=== PATIENT | female | born 1970 | race Caucasian/White ===

== ENCOUNTER 2021-10-31 14:34 | Observation (INO) ==
[2021-10-31] MEDS ORDERED: ONDANSETRON INJ 2 MG/ML 2 ML VIAL IV STA (14:53)
[2021-10-31 15:34] LABS: POC Urine Bilirubin Negative (Negative); POC Urine Blood 250 (Negative); POC Urine Glucose Normal (Normal); POC Urine Leukocytes Negative (Negative); POC Urine Nitrite Negative (Negative); POC Urine Protein Negative (Negative); POC Urine Urobilinogen Normal (Normal); POC Urine pH 7 (4.5-7.5)
[2021-10-31 15:59] LABS: Appearance Urine Clear (Clear); Bacteria Urine Automated Negative (Negative); Bilirubin Urine Negative (Negative); Blood Urine 3+ (Negative); Color Urine Yellow; Epithelial Cell Urine Auto 20-30 /lpf (0-5); Glucose Urine UA Negative (Negative); Ketones Urine 1+ (Negative); Leukocyte Esterase Urine Negative (Negative); Nitrite Urine Negative (Negative); Protein Urine Negative (Negative); RBC Urine Automated >30 /hpf (0-4); Specific Gravity Urine 1.017 (1.000-1.030); Urobilinogen Urine Negative (Negative); pH Urine 5.5 (4.5-7.5)
[2021-10-31 16:03] LABS: Hematocrit (blood only) 39.4 % (34.1-44.9); Hemoglobin 12.8 g/dl (12.0-16.0); Mean Corpuscular Hemoglobin 27.5 pg (25.0-34.0); Mean Corpuscular Hgb Conc 32.5 g/dL (32.0-36.0); Mean Corpuscular Volume 84.7 fL (80.0-100.0); Mean Platelet Volume 10.2 fL (9.4-12.3); Platelet Count 315 K/uL (130-400); RDW Coefficient of Variation 13.4 % (11.5-14.5); RDW Standard Deviation 41.4 fL (36.4-46.3); Red Blood Count 4.65 M/uL (3.93-5.22)
[2021-10-31 16:22] LABS: Albumin Globulin Ratio 1.4 (0.9-2); Albumin Level 4.6 gm/dl (3.4-5.0); BUN Creatinine Ratio 12.4 (10-20); Basophils # (auto) 0.07 K/uL (0-0.2); Basophils % (auto) 0.4 %; Bilirubin,Total 1.1 mg/dl (0.2-1.0); Calcium 9.4 mg/dl (8.5-10.1); Creatinine Clr Calc Pharmacy 68.8 ml/min; Eosinophils # (auto) 0.84 K/uL (0-0.50); Eosinophils % (auto) 4.9 %; Est GFR (African American) 88.2 ml/min; Est GFR (Non-African American) 76.1 ml/min; Globulin 3.2 gm/dl (2.5-4.0); Immature Granulocytes # (auto) 0.08 K/uL (0.00-0.02); Immature Granulocytes % (auto) 0.5 %; Lymphocytes # (auto) 2.04 K/uL (1.2-3.4); Lymphocytes % (auto) 11.9 %; Monocytes % (auto) 9.3 %; Neutrophils # (auto) 12.57 K/uL (1.4-6.5); Potassium 3.1 mmol/L (3.5-5.1); Total Protein 7.8 gm/dl (6.0-8.3)
[2021-10-31] MEDS ORDERED: KETOROLAC TROMETHAMINE 15 MG/ML VIAL IV STA (16:25)
[2021-10-31] MEDS ORDERED: ACETAMINOPHEN 1,000 MG/100 ML VIAL IV STA (16:25)
[2021-10-31] MEDS ORDERED: SODIUM CHLORIDE 0.9% 1000ML 2,000 ML IV ONE (16:25)
[2021-10-31] MEDS ORDERED: OPTIRAY 300 100mL IV ONE (16:54)
--- NOTE | 2021-10-31 17:24 | CT Scan Report ---
ABDOMEN AND PELVIS CT WITH IV CONTRAST CT DOSE: 264.16 mGy.cm HISTORY: right flank pain, n/v TECHNIQUE: Multiaxial CT images of the abdomen and pelvis were performed following the use of intrave nous contrast. A dose lowering technique was utilized adhering to the principles of ALARA. COMPARISON STUDY: None. FINDINGS: The lung bases are clear. No pneumoperitoneum. No pneumatosis. Sclerosis within the left me dial pubic bone which may be chronic. No fractures within the visualized osseous structures. The live r, gallbladder, pancreas, spleen, and adrenal glands are unremarkable. The main portal vein is patent . No retroperitoneal lymphadenopathy. Normal caliber abdominal aorta. No pelvic free fluid. The bladd er is decompressed but appears unremarkable. The uterus and ovaries are within normal limits. A few s mall bilateral renal hypodense lesions. Dominant right upper pole hypodense lesion measures 11 mm. Th judi favor cysts. No left-sided hydronephrosis. There is right perinephric edema/fluid and mild right hydroureteronephrosis secondary to an obstructing 4 mm stone within the distal right ureter on image 327. This is immediately proximal to the right ureterovesical junction. There is additional punctate nonobstructing stone within the lower pole of the right kidney. No bowel wall thickening or obstructi on. Normal appendix. IMPRESSION: 1. A 4 mm obstructing stone within the distal right ureter resulting in mild right hydroureteronephro sis. 2. Right perinephric edema/fluid could be due to the obstruction or represent a forniceal rupture . 3. Right-sided nephrolithiasis. 4. Normal appendix. ACT 112: Negative or not required by law. Electronically signed by: Semaj Ellis M.D. 10/31/2021 5:22 PM
[2021-10-31] MEDS ORDERED: TAMSULOSIN HCL 0.4 MG CAP PO ONE (17:32)
[2021-10-31] MEDS ORDERED: METOCLOPRAMIDE HCL INJ 5 MG/ML 2 ML VIAL IV ONE (18:17)
[2021-10-31] MEDS ORDERED: MoRPHine SULFATE 4 MG/ML 1 ML CARP\\VIAL IV STA (18:17)
--- NOTE | 2021-10-31 22:04 | History & Physical Report ---
Date of Service October 31, 2021 Assessment & Plan (1) Right distal ureteral calculus: Plan: Distal right ureteral calculus/mild right hydronephrosis/questionable forniceal rupture- N.p.o. after midnight Follow urine culture and sensitivity Ceftriaxone 1 g IV daily Acetaminophen 1 g IV every 8 hours as needed mild pain or fever Morphine sulfate 4 mg IV every 3 hours as needed for severe pain Zofran 4 mg IV every 6 hours as needed Famotidine 20 mg IV every 12 hours NSS + KCl 20 mEq at 80 mils per hour Consult urology (2) Hydronephrosis of right kidney: Plan: See above (3) Neutrophilic leukocytosis: Plan: Follow urine culture and sensitivity (4) Hypokalemia: Plan: Potassium 3.1 on admission IV fluids as noted above and recheck labs in a.m. (5) Hyponatremia: Plan: Sodium 133 on admission IV fluids above and recheck labs in a.m. History of Present Illness Chief Complaint: The patient reports to the emergency department with complaint of worsening right flank and right lower quadrant abdominal pain that began early in the day today, when she packed up her daughter and started to travel from [facility] and brought her to [facility] for first day of freshman year of college Primary Care Provider: NO PCP The patient is a 51-year-old female with a past medical history including 2 previous kidney stones, with the first when she was with her daughter over 17 years ago. At that time she had hematuria, which she does not have this time. She reports that her liquid intake may be decreased over the past few days with packing. He has had some nausea, no vomiting. She reports no sick exposures. Allergies Allergy/AdvReac Type Severity Reaction Status Date / Time Penicillins Allergy Unknown childhood Verified 10/31/21 16:37 allergy..unknown reaction Home Medications Medication Instructions Recorded Confirmed Type fexofenadine 180 mg tablet 180 mg PO DAILY 10/31/21 10/31/21 History ibuprofen 200 mg tablet (Advil) 400 - 800 mg PO Q6H PRN Pain 10/31/21 10/31/21 History Past Med/Surg History Social History Smoking Status: Never smoker Preferred Language: Malay Feels Safe at Home: Yes Review of Systems Review of Systems: The patient denies chest pain, palpitations, shortness of breath, dyspnea on exertion, cough, lower extremity swelling, sore throat, fevers, chills, sweats, vomiting, diarrhea , constipation, blood in urine or stool, lightheadedness, dizziness, headache, memory loss, loss of consciousness, rash, abnormal bruising or bleeding, imbalance, focal or generalized weakness, numbness or tingling in arms or legs, generalized arthralgias or myalgias, neck pain, or night sweats. The review of systems is otherwise negative other than for that already noted above, and at least 10 systems have been reviewed. Physical Exam Physical Exam: The patient is awake, alert and oriented 3, well developed and well nourished, normocephalic and atraumatic, lying in bed and in no acute distress after pain medications HEENT--PERRL, EOMI, mucous membranes and oropharynx normal. Neck--supple. No JVD. No bruits. Thyroid normal, trachea midline, no adenopathy. Heart--normal S1 and S2. No murmurs, rubs or gallops. Lungs--clear bilaterally, no respiratory distress, no accessory muscle use. Abdomen--normal bowel sounds and soft. Mild right flank tenderness. Nondistended, no hernias or masses, no organomegaly. Extremities--no cyanosis or clubbing. No edema. Dermatologic--normal skin turgor, normal color, no abnormal lymph nodes, no rash. Neurologic--cranial nerves II through XII grossly intact. Rheumatologic--normal range of motion. Psychiatric--normal affect. Results & Data Results & Data ([facility]) Vital Signs (Past 12 Hours) Vital Signs Temp Pulse Pulse Resp BP BP Pulse Ox 10/31/21 20:34 65 20 125/77 95 10/31/21 16:36 71 20 139/78 95 10/31/21 14:48 36.9 C 75 20 150/85 H 99 O2 Del Method 10/31/21 20:34 Room Air 10/31/21 16:36 Room Air 10/31/21 14:48 Room Air Laboratory Results Laboratory Results WBC 17.20 K/ul (4.8-10.8) H 10/31/21 15:39 RBC 4.65 M/uL (3.93-5.22) 10/31/21 15:39 Hgb 12.8 g/dl (12.0-16.0) 10/31/21 15:39 Hct 39.4 % (34.1-44.9) 10/31/21 15:39 MCV 84.7 fL (80.0-100.0) 10/31/21 15:39 MCH 27.5 pg (25.0-34.0) 10/31/21 15:39 MCHC 32.5 g/dL (32.0-36.0) 10/31/21 15:39 RDW Std Deviation 41.4 fL (36.4-46.3) 10/31/21 15:39 RDW Coeff of Yamilet 13.4 % (11.5-14.5) 10/31/21 15:39 Plt Count 315 K/uL (130-400) 10/31/21 15:39 MPV 10.2 fL (9.4-12.3) 10/31/21 15:39 Immature Gran % (Auto) 0.5 % 10/31/21 15:39 Neut % (Auto) 73.0 % 10/31/21 15:39 Lymph % (Auto) 11.9 % 10/31/21 15:39 [place] % (Auto) 9.3 % 10/31/21 15:39 Eos % (Auto) 4.9 % 10/31/21 15:39 Baso % (Auto) 0.4 % 10/31/21 15:39 Neut # (Auto) 12.57 K/uL (1.4-6.5) H 10/31/21 15:39 Lymph # (Auto) 2.04 K/uL (1.2-3.4) 10/31/21 15:39 [place] # (Auto) 1.60 K/uL (0.24-0.82) H 10/31/21 15:39 Eos # (Auto) 0.84 K/uL (0-0.50) H 10/31/21 15:39 Baso # (Auto) 0.07 K/uL (0-0.2) 10/31/21 15:39 Immature Gran # (Auto) 0.08 K/uL (0.00-0.02) H 10/31/21 15:39 Sodium 133 mmol/L (136-145) L 10/31/21 15:39 Potassium 3.1 mmol/L (3.5-5.1) L 10/31/21 15:39 Chloride 98 mmol/L (98-107) 10/31/21 15:39 Carbon Dioxide 25 mmol/L (21-32) 10/31/21 15:39 Anion Gap 10 (3-11) 10/31/21 15:39 BUN 11 mg/dl (6-23) 10/31/21 15:39 Creatinine 0.89 mg/dl (0.6-1.2) 10/31/21 15:39 Est Cr Clr Drug Dosing 68.8 ml/min 10/31/21 15:39 Est GFR ( Amer) 88.2 ml/min 10/31/21 15:39 Est GFR (Non-Af Amer) 76.1 ml/min 10/31/21 15:39 BUN/Creatinine Ratio 12.4 (10-20) 10/31/21 15:39 Glucose 98 mg/dl (70-99(Fasting)) 10/31/21 15:39 Calcium 9.4 mg/dl (8.5-10.1) 10/31/21 15:39 Total Bilirubin 1.1 mg/dl (0.2-1.0) H 10/31/21 15:39 AST 21 U/L (13-39) 10/31/21 15:39 ALT 15 U/L (7-52) 10/31/21 15:39 Alkaline Phosphatase 108 U/L (34-104) H 10/31/21 15:39 Total Protein 7.8 gm/dl (6.0-8.3) 10/31/21 15:39 Albumin 4.6 gm/dl (3.4-5.0) 10/31/21 15:39 Globulin 3.2 gm/dl (2.5-4.0) 10/31/21 15:39 Albumin/Globulin Ratio 1.4 (0.9-2) 10/31/21 15:39 Urine Color Yellow 10/31/21 15:20 Urine Appearance Clear (Clear) 10/31/21 15:20 Urine pH 5.5 (4.5-7.5) 10/31/21 15:20 POC Urine pH 7 (4.5-7.5) 10/31/21 15:24 Ur Specific [place] 1.017 (1.000-1.030) 10/31/21 15:20 Urine Protein Negative (Negative) 10/31/21 15:20 POC Urine Protein Negative (Negative) 10/31/21 15:24 Urine Glucose (UA) Negative (Negative) 10/31/21 15:20 POC Ur Glucose (UA) Normal (Normal) 10/31/21 15:24 Urine Ketones 1+ (Negative) H 10/31/21 15:20 POC Urine Ketones 2+ (Moderate) (Negative) H 10/31/21 15:24 Urine Blood 3+ (Negative) H 10/31/21 15:20 POC Urine Blood 250 (Negative) H 10/31/21 15:24 Urine Nitrite Negative (Negative) 10/31/21 15:20 POC Urine Nitrite Negative (Negative) 10/31/21 15:24 Urine Bilirubin Negative (Negative) 10/31/21 15:20 POC Urine Bilirubin Negative (Negative) 10/31/21 15:24 Urine Urobilinogen Negative (Negative) 10/31/21 15:20 POC Urine Urobilinogen Normal (Normal) 10/31/21 15:24 Ur Leukocyte Esterase Negative (Negative) 10/31/21 15:20 POC U Leukocyte Esteras Negative (Negative) 10/31/21 15:24 Urine WBC (Auto) 1-5 /hpf (0-5) 10/31/21 15:20 Urine RBC (Auto) >30 /hpf (0-4) H 10/31/21 15:20 U Hyaline Cast (Auto) 1-5 /lpf (0-5) 10/31/21 15:20 U Epithel Cells (Auto) 20-30 /lpf (0-5) H 10/31/21 15:20 Urine Bacteria (Auto) Negative (Negative) 10/31/21 15:20 POC Ur Test NEG (NEG) 10/31/21 15:24 SARS-CoV-2, RNA, NAAT NEGATIVE (NEGATIVE) 10/31/21 21:20 Impressions Abdomen/Pelvis CT 10/31/21 16:[address] WITH IV CONTRAST CT DOSE: 264.16 mGy.cm HISTORY: right flank pain, n/v TECHNIQUE: Multiaxial CT images of the abdomen and pelvis were performed following the use of intravenous contrast. A dose lowering technique was utilized adhering to the principles of ALARA. COMPARISON STUDY: None. FINDINGS: The lung bases are clear. No pneumoperitoneum. No pneumatosis. Scl erosis within the left medial pubic bone which may be chronic. No fractures within the visualized osseous structures. The liver, gallbladder, pancreas, spleen, and adrenal glands are unremarkable. The main portal vein is patent. No retroperitoneal lymphadenopathy. Normal caliber abdominal aorta. No pelvic free fluid. The bladder is decompressed but appears unremarkable. The uterus and ovaries are within normal limits. A few small bilateral renal hypodense lesions. Dominant right upper pole hypodense lesion measures 11 mm. These favor cysts. No left-sided hydronephrosis. There is right perinephric edema/fluid and mild right hydroureteronephrosis secondary to an obstructing 4 mm stone within the distal right ureter on image 327. This is immediately proximal to the right ureterovesical junction. There is additional punctate nonobstructing stone within the lower pole of the right kidney. No bowel wall thickening or obstruction. Normal appendix. IMPRESSION: 1. A 4 mm obstructing stone within the distal right ureter resulting in mild right hydroureteronephrosis. 2. Right perinephric edema/fluid could be due to the obstruction or represent a forniceal rupture . 3. Right-sided nephrolithiasis. 4. Normal appendix. ACT 112: Negative or not required by law. Electronically signed by: Semaj Ellis M.D. 10/31/2021 5:22 PM Code Status & VTE Plan Code Status Full code VTE Prophylaxis Plan VTE Prophylaxis will be ordered: Yes PG Care Time/CCT Total # of Minutes Spent Total Time Spent with Patient: Total time spent is greater than 50% in coordination of care (as documented) at patient's floor/unit and/or counseling patient: Coding Level of Care Code 83000 Initial Inpt Care Lvl 2 Diagnoses Right distal ureteral calculus N20.1 Hydronephrosis of right kidney N13.30 Neutrophilic leukocytosis D72.9 Hypokalemia E87.6 Hyponatremia E87.1
--- NOTE | 2021-11-01 00:14 | Emergency Department Note ---
Impression & Plan Hydronephrosis of right kidney, Right distal ureteral calculus, Neutrophilic leukocytosis, Hypokalemia, Hyponatremia ED Provider Note NAME: MILADIS ECHEVERRIA AGE: 51 SEX: F ARRIVES VIA: Walk-In INFORMANT: Patient ED PROVIDER(S): Nam Woods MD CHIEF COMPLAINT: right flank pain. PLAN: Disposition: Admit MEDICAL DECISION MAKING: The patient is a pleasant 51-year-old woman with a past medical history of nephrolithiasis who presents to the emergency department with worsening right flank pain that radiates to her right lower abdomen that developed today when they were on their way from [place] to drop their daughter to start school here at [facility]. Patient reports that she began to develop increasing pain with intractable nausea and so presents for evaluation. She denies any burning with urination. She reports it is difficult to assess blood in her urine due to starting her menstrual cycle. She denies any diarrhea, cough, congestion, chest pain or shortness of breath. On arrival, the patient is uncomfortable no acute distress, afebrile stable vital signs. She appears clinically dry. She has mild right flank and right lower abdomen discomfort without discrete tenderness. WBC 17K, nonspecific. H/H and platelets within normal limits. Potassium 3.1, sodium 133 and electrolytes otherwise without significant normality. Chemistry without metabolic acidosis. LFTs without significant abnormality. UA without convincing evidence of infection. COVID-19 RNA, [place] test was negative. CT of the abdomen pelvis was performed and demonstrates obstructing right distal ureteral stone with associated hydroureteral nephrosis and evidence of forniceal rupture. Upon reevaluation patient did report some improvement in symptoms after IV fluid hydration, APAP, Toradol, Zofran. However still nauseated with pain and so was additionally treated with morphine and Reglan however still significantly symptomatic and agrees with plan for admission for pain control. Case was discussed with Dr. Montalvo, [facility] hospitalist, who will evaluate the patient for admission. Triage Nursing notes reviewed and agree them. Prior medical records reviewed Vital Signs: reviewed and remarkable for no significant abnormalities Differential diagnosis: Renal colic, UTI, appendicitis, diverticulitis, mesenteric ischemia, aortic pathology, infections, inflammatory bowel disease, PUD, biliary pathology, as well as other pathologies. ER treatment provided: See below. Diagnostics interpreted by me: Cardiac Monitoring: An order for continuous cardiac monitoring was placed and demonstrated normal sinus rhythm, 65 bpm, no ectopy. Laboratory studies: See below Imaging studies: See below Consultation(s): Case was discussed with Dr. Montalvo, [facility] hospitalist, who will evaluate the patient for admission. HPI: The patient is a pleasant 51-year-old woman with a past medical history of nephrolithiasis who presents to the emergency department with worsening right flank pain that radiates to her right lower abdomen that developed today when they were on their way from [place] to drop their daughter to start school here at [facility]. Patient reports that she began to develop increasing pain with intractable nausea and so presents for evaluation. She denies any burning with urination. She reports it is difficult to assess blood in her urine due to starting her menstrual cycle. She denies any diarrhea, cough, congestion, chest pain or shortness of breath. ROS: See above HPI for pertinent positives & negatives. A total of 10 systems reviewed and were otherwise negative. VITALS:See Below PHYSICAL EXAMINATION: GENERAL: Awake, alert, uncomfortable-appearing, in no distress HENT: Normocephalic, atraumatic. Oropharynx with dry mucous membranes and otherwise unremarkable. EYES: Normal conjunctiva. Sclera non-icteric. NECK: Supple. No nuchal rigidity. FROM. No JVD. RESPIRATORY: Clear to auscultation. CARDIAC: Regular rate, normal rhythm. Extremities warm and well perfused. Pulses equal. ABDOMEN: Soft, non-distended. Mild right flank and right lower abdomen discomfort without discrete tenderness. RECTAL: Deferred. MUSCULOSKELETAL: Chest examination reveals no tenderness. The back is sy mmetrical on inspection without obvious abnormality. There is no CVA tenderness to palpation. No joint edema. LOWER EXTREMITIES: Calves are equal size bilaterally and non-tender. No edema. No discoloration. NEURO: Normal sensorium. No sensory or motor deficits noted. SKIN: No rash or jaundice noted. Nam Woods MD Past Med/Surg History Medical History Nephrolithiasis Family History Other Family history non-contributory Social History Smoking Status: Never smoker Preferred Language: Stateless Feels Safe at Home: Yes Allergies Allergies Allergy/AdvReac Type Severity Reaction Status Date / Time Penicillins Allergy Unknown childhood Verified 10/31/21 16:37 allergy..unknown reaction Home Meds Home Medications Medication Instructions Recorded Confirmed fexofenadine 180 mg tablet 180 mg PO DAILY 10/31/21 10/31/21 ibuprofen 200 mg tablet (Advil) 400 - 800 mg PO Q6H PRN Pain 10/31/21 10/31/21 Results & Data (ED) Vital Signs Vital Signs - 24 hr 10/31/21 14:48 10/31/21 16:36 10/31/21 20:34 Temperature 36.9 C Temperature Source Temporal Artery Scan Pulse Rate 75 Pulse Rate [Right Finger] 71 65 Respiratory Rate 20 20 20 Respiratory Effort / Characteristics Non-Labored Non-Labored Non-Labored Spontaneous Respiratory Depth Normal Normal Normal Respiratory Pattern Regular Blood Pressure 150/85 H Blood Pressure [Right Arm] 139/78 125/77 Blood Pressure Mean 106 Blood Pressure Mean [Right Arm] 98 93 Blood Pressure Position [Right Arm] Lying Pulse Oximetry 99 95 95 Oxygen Delivery Method Room Air Room Air Room Air Sepsis Recent Fever Within 48 Hours No Sepsis New/Unexplained Change in Mental Status N/A Sepsis Action Taken by Nursing No Action Required 10/31/21 22:17 Temperature Temperature Source Pulse Rate Pulse Rate [Right Finger] 57 L Respiratory Rate 18 Respiratory Effort / Characteristics Non-Labored Spontaneous Respiratory Depth Normal Respiratory Pattern Regular Blood Pressure Blood Pressure [Right Arm] 128/83 Blood Pressure Mean Blood Pressure Mean [Right Arm] 98 Blood Pressure Position [Right Arm] Pulse Oximetry 96 Oxygen Delivery Method Room Air Sepsis Recent Fever Within 48 Hours Sepsis New/Unexplained Change in Mental Status Sepsis Action Taken by Nursing Laboratory Data Attestation: I reviewed the patient's lab results. Result diagrams: 10/31/21 15:39 10/31/21 15:39 Lab Results 10/31/21 10/31/21 10/31/21 Range/Units 15:20 15:24 15:24 WBC (4.8-10.8) K/ul RBC (3.93-5.22) M/uL Hgb (12.0-16.0) g/dl Hct (34.1-44.9) % MCV (80.0-100.0) fL MCH (25.0-34.0) pg MCHC (32.0-36.0) g/dL RDW Std Deviation (36.4-46.3) fL RDW Coeff of Yamilet (11.5-14.5) % Plt Count (130-400) K/uL MPV (9.4-12.3) fL Immature Gran % (Auto) % Neut % (Auto) % Lymph % (Auto) % [place] % (Auto) % Eos % (Auto) % Baso % (Auto) % Neut # (Auto) (1.4-6.5) K/uL Lymph # (Auto) (1.2-3.4) K/uL [place] # (Auto) (0.24-0.82) K/uL Eos # (Auto) (0-0.50) K/uL Baso # (Auto) (0-0.2) K/uL Immature Gran # (Auto) (0.00-0.02) K/uL Sodium (136-145) mmol/L Potassium (3.5-5.1) mmol/L Chloride (98-107) mmol/L Carbon Dioxide (21-32) mmol/L Anion Gap (3-11) BUN (6-23) mg/dl Creatinine (0.6-1.2) mg/dl Est Cr Clr Drug Dosing ml/min Est GFR ( Amer) ml/min Est GFR (Non-Af Amer) ml/min BUN/Creatinine Ratio (10-20) Glucose (70-99(Fasting)) mg/dl Calcium (8.5-10.1) mg/dl Total Bilirubin (0.2-1.0) mg/dl AST (13-39) U/L ALT (7-52) U/L Alkaline Phosphatase (34-104) U/L Total Protein (6.0-8.3) gm/dl Albumin (3.4-5.0) gm/dl Globulin (2.5-4.0) gm/dl Albumin/Globulin Ratio (0.9-2) Urine Color Yellow Urine Appearance Clear (Clear) Urine pH 5.5 (4.5-7.5) POC Urine pH 7 (4.5-7.5) Ur Specific [place] 1.017 (1.000-1.030) Urine Protein Negative (Negative) POC Urine Protein Negative (Negative) Urine Glucose (UA) Negative (Negative) POC Ur Glucose (UA) Normal (Normal) Urine Ketones 1+ H (Negative) POC Urine Ketones 2+ (Moderate) H (Negative) Urine Blood 3+ H (Negative) POC Urine Blood 250 H (Negative) Urine Nitrite Negative (Negative) POC Urine Nitrite Negative (Negative) Urine Bilirubin Negative (Negative) POC Urine Bilirubin Negative (Negative) Urine Urobilinogen Negative (Negative) POC Urine Urobilinogen Normal (Normal) Ur Leukocyte Esterase Negative (Negative) POC U Leukocyte Esteras Negative (Negative) Urine WBC (Auto) 1-5 (0-5) /hpf Urine RBC (Auto) >30 H (0-4) /hpf U Hyaline Cast (Auto) 1-5 (0-5) /lpf U Epithel Cells (Auto) 20-30 H (0-5) /lpf Urine Bacteria (Auto) Negative (Negative) POC Ur Test NEG (NEG) SARS-CoV-2, RNA, NAAT (NEGATIVE) 10/31/21 10/31/21 10/31/21 Range/Units 15:39 15:39 21:20 WBC 17.20 H (4.8-10.8) K/ul RBC 4.65 (3.93-5.22) M/uL Hgb 12.8 (12.0-16.0) g/dl Hct 39.4 (34.1-44.9) % MCV 84.7 (80.0-100.0) fL MCH 27.5 (25.0-34.0) pg MCHC 32.5 (32.0-36.0) g/dL RDW Std Deviation 41.4 (36.4-46.3) fL RDW Coeff of Yamilet 13.4 (11.5-14.5) % Plt Count 315 (130-400) K/uL MPV 10.2 (9.4-12.3) fL Immature Gran % (Auto) 0.5 % Neut % (Auto) 73.0 % Lymph % (Auto) 11.9 % [place] % (Auto) 9.3 % Eos % (Auto) 4.9 % Baso % (Auto) 0.4 % Neut # (Auto) 12.57 H (1.4-6.5) K/uL Lymph # (Auto) 2.04 (1.2-3.4) K/uL [place] # (Auto) 1.60 H (0.24-0.82) K/uL Eos # (Auto) 0.84 H (0-0.50) K/uL Baso # (Auto) 0.07 (0-0.2) K/uL Immature Gran # (Auto) 0.08 H (0.00-0.02) K/uL Sodium 133 L (136-145) mmol/L Potassium 3.1 L (3.5-5.1) mmol/L Chloride 98 (98-107) mmol/L Carbon Dioxide 25 (21-32) mmol/L Anion Gap 10 (3-11) BUN 11 (6-23) mg/dl Creatinine 0.89 (0.6-1.2) mg/dl Est Cr Clr Drug Dosing 68.8 ml/min Est GFR ( Amer) 88.2 ml/min Est GFR (Non-Af Amer) 76.1 ml/min BUN/Creatinine Ratio 12.4 (10-20) Glucose 98 (70-99(Fasting)) mg/dl Calcium 9.4 (8.5-10.1) mg/dl Total Bilirubin 1.1 H (0.2-1.0) mg/dl AST 21 (13-39) U/L ALT 15 (7-52) U/L Alkaline Phosphatase 108 H (34-104) U/L Total Protein 7.8 (6.0-8.3) gm/dl Albumin 4.6 (3.4-5.0) gm/dl Globulin 3.2 (2.5-4.0) gm/dl Albumin/Globulin Ratio 1.4 (0.9-2) Urine Color Urine Appearance (Clear) Urine pH (4.5-7.5) POC Urine pH (4.5-7.5) Ur Specific [place] (1.000-1.030) Urine Protein (Negative) POC Urine Protein (Negative) Urine Glucose (UA) (Negative) POC Ur Glucose (UA) (Normal) Urine Ketones (Negative) POC Urine Ketones (Negative) Urine Blood (Negative) POC Urine Blood (Negative) Urine Nitrite (Negative) POC Urine Nitrite (Negative) Urine Bilirubin (Negative) POC Urine Bilirubin (Negative) Urine Urobilinogen (Negative) POC Urine Urobilinogen (Normal) Ur Leukocyte Esterase (Negative) POC U Leukocyte Esteras (Negative) Urine WBC (Auto) (0-5) /hpf Urine RBC (Auto) (0-4) /hpf U Hyaline Cast (Auto) (0-5) /lpf U Epithel Cells (Auto) (0-5) /lpf Urine Bacteria (Auto) (Negative) POC Ur Test (NEG) SARS-CoV-2, RNA, NAAT NEGATIVE (NEGATIVE) Administered Medications Discontinued Medications Acetaminophen (Ofirmev) 1,000 mg in 100 mls @ 400 mls/hr IV NOW STA Stop: 10/31/21 16:39 Last Infusion: 10/31/21 16:50 Dose: 0 mls/hr Documented By: Admin: 10/31/21 16:30 Dose: 400 mls/hr Documented By: ES Sodium Chloride (Nss 1000ml) 2,000 mls @ 999 mls/hr IV .Q2H1M ONE Stop: 10/31/21 18:25 Last Infusion: 10/31/21 18:49 Dose: 0 mls/hr Documented By: Admin: 10/31/21 16:30 Dose: 999 mls/hr Documented By: ES Ioversol (Optiray 300 100ml) 100 ml IV ONCE ONE Stop: 10/31/21 16:55 Last Admin: 10/31/21 16:55 Dose: 90 ml Documented By: HEMALATHA Ketorolac Tromethamine (Ketorolac Tromethamine 15 Mg/Ml Vial) 15 mg IV NOW STA Stop: 10/31/21 16:26 Last Admin: 10/31/21 16:30 Dose: 15 mg Documented By: ES Metoclopramide HCl (Metoclopramide Hcl Inj 5 Mg/Ml 2 Ml Vial) 5 mg IV ONE ONE Stop: 10/31/21 18:18 Last Admin: 10/31/21 19:02 Dose: 5 mg Documented By: MED Morphine Sulfate (Morphine Sulfate 4 Mg/Ml 1 Ml Carp\Vial) 4 mg IV NOW STA Stop: 10/31/21 18:18 Last Admin: 10/31/21 19:16 Dose: 4 mg Documented By: MED Ondansetron HCl (Ondansetron Inj 2 Mg/Ml 2 Ml Vial) 4 mg IV NOW STA Stop: 10/31/21 14:54 Last Admin: 10/31/21 15:40 Dose: 4 mg Documented By: EVELIAW Tamsulosin HCl (Tamsulosin Hcl 0.4 Mg Cap) 0.4 mg PO NOW ONE Stop: 10/31/21 17:33 Last Admin: 10/31/21 22:23 Dose: Not Given Documented By: MED Imaging Data Radiologist's Impression: Abdomen/Pelvis CT 10/31/21 16:[address] WITH IV CONTRAST CT DOSE: 264.16 mGy.cm HISTORY: right flank pain, n/v TECHNIQUE: Multiaxial CT images of the abdomen and pelvis were performed following the use of intravenous contrast. A dose lowering technique was utilized adhering to the principles of ALARA. COMPARISON STUDY: None. FINDINGS: The lung bases are clear. No pneumoperitoneum. No pneumatosis. Sclerosis within the left medial pubic bone which may be chronic. No fractures within the visualized osseous structures. The liver, gallbladder, pancreas, spleen, and adrenal glands are unremarkable. The main portal vein is patent. No retroperitoneal lymphadenopathy. Normal caliber abdominal aorta. No pelvic free fluid. The bladder is decompressed but appears unremarkable. The uterus and ovaries are within normal limits. A few small bilateral renal hypodense lesions. Dominant right upper pole hypodense lesion measures 11 mm. These favor cysts. No left-sided hydronephrosis. There is right perinephric edema/fluid and mild right hydroureteronephrosis secondary to an obstructing 4 mm stone within the distal right ureter on image 327. This is immediately proximal to the right ureterovesical junction. There is additional punctate nonobstructing stone within the lower pole of the right kidney. No bowel wall thickening or obstruction. Normal appendix. IMPRESSION: 1. A 4 mm obstructing stone within the distal right ureter resulting in mild right hydroureteronephrosis. 2. Right perinephric edema/fluid could be due to the obstruction or represent a forniceal rupture . 3. Right-sided nephrolithiasis. 4. Normal appendix. ACT 112: Negative or not required by law. Electronically signed by: Semaj Ellis M.D. 10/31/2021 5:22 PM Discharge Plan Visit Data Chief Complaint: Back Injury/Pain Stated Complaint: BACK AND PELVIC PAIN ED Provider: Nam Woods Discharge Problem: Hydronephrosis of right kidney, Right distal ureteral calculus, Neutrophilic leukocytosis, Hypokalemia, Hyponatremia Discharge Instructions Activity Restrictions/Additional Instructions: ---- ABDOMEN AND PELVIS CT WITH IV CONTRAST CT DOSE: 264.16 mGy.cm HISTORY: right flank pain, n/v TECHNIQUE: Multiaxial CT images of the abdomen and pelvis were performed following the use of intravenous contrast. A dose lowering technique was utilized adhering to the principles of ALARA. COMPARISON STUDY: None. FINDINGS: The lung bases are clear. No pneumoperitoneum. No pneumatosis. Sclerosis within the left medial pubic bone which may be chronic. No fractures within the visualized osseous structures. The liver, gallbladder, pancreas, spleen, and adrenal glands are unremarkable. The main portal vein is patent. No retroperitoneal lymphadenopathy. Normal caliber abdominal aorta. No pelvic free fluid. The bladder is decompressed but appears unremarkable. The uterus and ovaries are within normal limits. A few small bilateral renal hypodense lesions. Dominant right upper pole hypodense lesion measures 11 mm. These favor cysts. No left-sided hydronephrosis. There is right perinephric edema/fluid and mild right hydroureteronephrosis secondary to an obstructing 4 mm stone within the distal right ureter on image 327. This is immediately proximal to the right ureterovesical junction. There is additional punctate nonobstructing stone within the lower pole of the right kidney. No bowel wall thickening or obstruction. Normal appendix. IMPRESSION: 1. A 4 mm obstructing stone within the distal right ureter resulting in mild right hydroureteronephrosis. 2. Right perinephric edema/fluid could be due to the obstruction or represent a forniceal rupture . 3. Right-sided nephrolithiasis. 4. Normal appendix. Forms Stand Alone Forms: My [facility] Prescriptions Prescriptions: No Action fexofenadine [Hodan] 180 mg Tablet 180 mg PO DAILY ibuprofen [Advil] 200 mg Tablet 400 - 800 mg PO Q6H PRN (Reason: Pain) Referrals Referrals: PCP,NO [Primary Care Provider] -
[2021-11-01] MEDS ORDERED: MoRPHine SULFATE 4 MG/ML 1 ML CARP\\VIAL IV PRN (01:10)
[2021-11-01] MEDS ORDERED: ACETAMINOPHEN 1,000 MG/100 ML VIAL IV PRN (01:10)
[2021-11-01] MEDS ORDERED: ONDANSETRON INJ 2 MG/ML 2 ML VIAL IV PRN (01:10)
[2021-11-01] MEDS ORDERED: CIPROFLOXACIN / D5W 400 MG/200 ML BAG IV SCH (02:00)
[2021-11-01] MEDS ORDERED: NSS + 20MEQ KCL 20 MEQ/1,000 ML BAG IV SCH (02:00)
[2021-11-01] MEDS ORDERED: FAMOTIDINE 20 MG in SYRINGE 3 ML IV SCH (03:00)
[2021-11-01 05:22] LABS: Basophils # (auto) 0.06 K/uL (0-0.2); Basophils % (auto) 0.5 %; Eosinophils # (auto) 0.06 K/uL (0-0.50); Eosinophils % (auto) 0.5 %; Hemoglobin 11.4 g/dl (12.0-16.0); Immature Granulocytes # (auto) 0.07 K/uL (0.00-0.02); Immature Granulocytes % (auto) 0.5 %; Lymphocytes # (auto) 2.55 K/uL (1.2-3.4); Lymphocytes % (auto) 19.3 %; Mean Corpuscular Hemoglobin 27.5 pg (25.0-34.0); Mean Corpuscular Hgb Conc 32.6 g/dL (32.0-36.0); Mean Corpuscular Volume 84.5 fL (80.0-100.0); Mean Platelet Volume 10.1 fL (9.4-12.3); Monocytes # (auto) 1.69 K/uL (0.24-0.82); Monocytes % (auto) 12.8 %; Neutrophils # (auto) 8.78 K/uL (1.4-6.5); Neutrophils % (auto) 66.4 %; Platelet Count 255 K/uL (130-400); RDW Coefficient of Variation 13.4 % (11.5-14.5); RDW Standard Deviation 41.5 fL (36.4-46.3); Red Blood Count 4.14 M/uL (3.93-5.22); White Blood Count 13.21 K/ul (4.8-10.8)
[2021-11-01 06:01] LABS: Albumin Globulin Ratio 1.5 (0.9-2); Albumin Level 3.3 gm/dl (3.4-5.0); BUN Creatinine Ratio 10.8 (10-20); Calcium 7.8 mg/dl (8.5-10.1); Creatinine Clr Calc Pharmacy 73.8 ml/min; Est GFR (Non-African American) 82.8 ml/min; Globulin 2.2 gm/dl (2.5-4.0); Magnesium 1.8 mg/dl (1.7-2.4); Potassium 3.4 mmol/L (3.5-5.1); Total Protein 5.5 gm/dl (6.0-8.3)
--- NOTE | 2021-11-01 07:29 | Hospitalist Progress Note ---
Date of Service November 01, 2021 Assessment & Plan (1) Right distal ureteral calculus: Plan: 4 mm distal right ureteral calculus/mild right hydronephrosis/questionable forniceal rupture- Ceftriaxone 1 g IV daily Pain well controlled continue: Acetaminophen 1 g IV q8 prn mild pain or fever, Morphine sulfate 4 mg IV q 3 prn for severe pain Zofran 4 mg IV q6 prn for nausea Famotidine 20 mg IV every 12 hours NSS + KCl 20 mEq at 80 mils per hour Urology Consult Pending- NPO after midnight Follow urine culture/sensitivities (2) Hydronephrosis of right kidney: Plan: As per above (3) Neutrophilic leukocytosis: Plan: Follow urine culture and sensitivity Continue Ceftriaxone 1 g IV daily (4) Hypokalemia: Plan: Potassium 3.1 on admission NSS + KCl 20 mEq at 80 mils per hour K= 3.4 this morning, will continue to trend (5) Hyponatremia: Plan: Sodium 133 on admission up to 137 with IV fluids Continue to monitor Admission and Anticipated Discharge Date Admission Date: October 31, 2021 Subjective 51 year old female with a past medical history of 2 prior kidney stones. She presented to the ED yesterday with right flank pain that radiates to her right groin. She is from [place] and is here dropping her daughter off for her freshman year at [employer]. No events overnight. Her pain is well controlled today, last dose of morphine, 4mg 19:00 yesterday evening. She continues to have some mild right sided flank pain that radiates to right groin. She is voiding without issue. Denies increased frequency, dysuria. Is currently on her period, so unsure of hematuria. Denies nausea, vomiting. Physical Exam Physical Exam: Constitutional: well-appearing, no acute distress HEENT: NCAT, no conjunctival injection CV: regular rhythm, no murmur appreciated, extremities well-perfused, no LE edema Resp: CTABL, no wheezes/rales/rhonchi appreciated, no increased work of breathing GI: soft, nondistended, nontender, BS normoactive. No CVA tenderness. Mild RLQ pain. MSK: no gross deformities appreciated Skin: warm, dry, no rash appreciated Neuro: alert, oriented, no focal neurologic deficit appreciated Results & Data Results & Data ([facility]) Vital Signs (Past 12 Hours) Vital Signs Pulse Resp BP Pulse Ox O2 Del Method 11/01/21 04:26 16 120/69 93 Room Air 11/01/21 03:29 18 104/67 95 Room Air 11/01/21 02:01 Room Air 11/01/21 00:34 16 103/61 93 Room Air 10/31/21 22:17 57 L 18 128/83 96 Room Air 10/31/21 20:34 65 20 125/77 95 Room Air Laboratory Results 11/01/21 11/01/21 10/31/21 Range/Units 04:51 04:51 21:20 WBC 13.21 H (4.8-10.8) K/ul RBC 4.14 (3.93-5.22) M/uL Hgb 11.4 L (12.0-16.0) g/dl Hct 35.0 (34.1-44.9) % MCV 84.5 (80.0-100.0) fL MCH 27.5 (25.0-34.0) pg MCHC 32.6 (32.0-36.0) g/dL RDW Std Deviation 41.5 (36.4-46.3) fL RDW Coeff of Yamilet 13.4 (11.5-14.5) % Plt Count 255 (130-400) K/uL MPV 10.1 (9.4-12.3) fL Immature Gran % (Auto) 0.5 % Neut % (Auto) 66.4 % Lymph % (Auto) 19.3 % Grant % (Auto) 12.8 % Eos % (Auto) 0.5 % Baso % (Auto) 0.5 % Neut # (Auto) 8.78 H (1.4-6.5) K/uL Lymph # (Auto) 2.55 (1.2-3.4) K/uL Grant # (Auto) 1.69 H (0.24-0.82) K/uL Eos # (Auto) 0.06 (0-0.50) K/uL Baso # (Auto) 0.06 (0-0.2) K/uL Immature Gran # (Auto) 0.07 H (0.00-0.02) K/uL Sodium 136 (136-145) mmol/L Potassium 3.4 L (3.5-5.1) mmol/L Chloride 107 (98-107) mmol/L Carbon Dioxide 23 (21-32) mmol/L Anion Gap 6 (3-11) BUN 9 (6-23) mg/dl Creatinine 0.83 (0.6-1.2) mg/dl Est Cr Clr Drug Dosing 73.8 ml/min Est GFR ( Amer) 96.0 ml/min Est GFR (Non-Af Amer) 82.8 ml/min BUN/Creatinine Ratio 10.8 (10-20) Glucose 101 H (70-99(Fasting)) mg/dl Calcium 7.8 L (8.5-10.1) mg/dl Magnesium 1.8 (1.7-2.4) mg/dl Total Bilirubin 1.0 (0.2-1.0) mg/dl AST 17 (13-39) U/L ALT 11 (7-52) U/L Alkaline Phosphatase 78 (34-104) U/L Total Protein 5.5 L D (6.0-8.3) gm/dl Albumin 3.3 L (3.4-5.0) gm/dl Globulin 2.2 L (2.5-4.0) gm/dl Albumin/Globulin Ratio 1.5 (0.9-2) Urine Color Urine Appearance (Clear) Urine pH (4.5-7.5) POC Urine pH (4.5-7.5) Ur Specific [place] (1.000-1.030) Urine Protein (Negative) POC Urine Protein (Negative) Urine Glucose (UA) (Negative) POC Ur Glucose (UA) (Normal) Urine Ketones (Negative) POC Urine Ketones (Negative) Urine Blood (Negative) POC Urine Blood (Negative) Urine Nitrite (Negative) POC Urine Nitrite (Negative) Urine Bilirubin (Negative) POC Urine Bilirubin (Negative) Urine Urobilinogen (Negative) POC Urine Urobilinogen (Normal) Ur Leukocyte Esterase (Negative) POC U Leukocyte Esteras (Negative) Urine WBC (Auto) (0-5) /hpf Urine RBC (Auto) (0-4) /hpf U Hyaline Cast (Auto) (0-5) /lpf U Epithel Cells (Auto) (0-5) /lpf Urine Bacteria (Auto) (Negative) POC Ur Test (NEG) SARS-CoV-2, RNA, NAAT NEGATIVE (NEGATIVE) 10/31/21 10/31/21 10/31/21 Range/Units 15:39 15:39 15:24 WBC 17.20 H (4.8-10.8) K/ul RBC 4.65 (3.93-5.22) M/uL Hgb 12.8 (12.0-16.0) g/dl Hct 39.4 (34.1-44.9) % MCV 84.7 (80.0-100.0) fL MCH 27.5 (25.0-34.0) pg MCHC 32.5 (32.0-36.0) g/dL RDW Std Deviation 41.4 (36.4-46.3) fL RDW Coeff of Yamilet 13.4 (11.5-14.5) % Plt Count 315 (130-400) K/uL MPV 10.2 (9.4-12.3) fL Immature Gran % (Auto) 0.5 % Neut % (Auto) 73.0 % Lymph % (Auto) 11.9 % Grant % (Auto) 9.3 % Eos % (Auto) 4.9 % Baso % (Auto) 0.4 % Neut # (Auto) 12.57 H (1.4-6.5) K/uL Lymph # (Auto) 2.04 (1.2-3.4) K/uL Grant # (Auto) 1.60 H (0.24-0.82) K/uL Eos # (Auto) 0.84 H (0-0.50) K/uL Baso # (Auto) 0.07 (0-0.2) K/uL Immature Gran # (Auto) 0.08 H (0.00-0.02) K/uL Sodium 133 L (136-145) mmol/L Potassium 3.1 L (3.5-5.1) mmol/L Chloride 98 (98-107) mmol/L Carbon Dioxide 25 (21-32) mmol/L Anion Gap 10 (3-11) BUN 11 (6-23) mg/dl Creatinine 0.89 (0.6-1.2) mg/dl Est Cr Clr Drug Dosing 68.8 ml/min Est GFR ( Amer) 88.2 ml/min Est GFR (Non-Af Amer) 76.1 ml/min BUN/Creatinine Ratio 12.4 (10-20) Glucose 98 (70-99(Fasting)) mg/dl Calcium 9.4 (8.5-10.1) mg/dl Magnesium (1.7-2.4) mg/dl Total Bilirubin 1.1 H (0.2-1.0) mg/dl AST 21 (13-39) U/L ALT 15 (7-52) U/L Alkaline Phosphatase 108 H (34-104) U/L Total Protein 7.8 (6.0-8.3) gm/dl Albumin 4.6 (3.4-5.0) gm/dl Globulin 3.2 (2.5-4.0) gm/dl Albumin/Globulin Ratio 1.4 (0.9-2) Urine Color Urine Appearance (Clear) Urine pH (4.5-7.5) POC Urine pH 7 (4.5-7.5) Ur Specific [place] (1.000-1.030) Urine Protein (Negative) POC Urine Protein Negative (Negative) Urine Glucose (UA) (Negative) POC Ur Glucose (UA) Normal (Normal) Urine Ketones (Negative) POC Urine Ketones 2+ (Moderate) H (Negative) Urine Blood (Negative) POC Urine Blood 250 H (Negative) Urine Nitrite (Negative) POC Urine Nitrite Negative (Negative) Urine Bilirubin (Negative) POC Urine Bilirubin Negative (Negative) Urine Urobilinogen (Negative) POC Urine Urobilinogen Normal (Normal) Ur Leukocyte Esterase (Negative) POC U Leukocyte Esteras Negative (Negative) Urine WBC (Auto) (0-5) /hpf Urine RBC (Auto) (0-4) /hpf U Hyaline Cast (Auto) (0-5) /lpf U Epithel Cells (Auto) (0-5) /lpf Urine Bacteria (Auto) (Negative) POC Ur Test (NEG) SARS-CoV-2, RNA, NAAT (NEGATIVE) 10/31/21 10/31/21 Range/Units 15:24 15:20 WBC (4.8-10.8) K/ul RBC (3.93-5.22) M/uL Hgb (12.0-16.0) g/dl Hct (34.1-44.9) % MCV (80.0-100.0) fL MCH (25.0-34.0) pg MCHC (32.0-36.0) g/dL RDW Std Deviation (36.4-46.3) fL RDW Coeff of Yamilet (11.5-14.5) % Plt Count (130-400) K/uL MPV (9.4-12.3) fL Immature Gran % (Auto) % Neut % (Auto) % Lymph % (Auto) % Grant % (Auto) % Eos % (Auto) % Baso % (Auto) % Neut # (Auto) (1.4-6.5) K/uL Lymph # (Auto) (1.2-3.4) K/uL Grant # (Auto) (0.24-0.82) K/uL Eos # (Auto) (0-0.50) K/uL Baso # (Auto) (0-0.2) K/uL Immature Gran # (Auto) (0.00-0.02) K/uL Sodium (136-145) mmol/L Potassium (3.5-5.1) mmol/L Chloride (98-107) mmol/L Carbon Dioxide (21-32) mmol/L Anion Gap (3-11) BUN (6-23) mg/dl Creatinine (0.6-1.2) mg/dl Est Cr Clr Drug Dosing ml/min Est GFR ( Amer) ml/min Est GFR (Non-Af Amer) ml/min BUN/Creatinine Ratio (10-20) Glucose (70-99(Fasting)) mg/dl Calcium (8.5-10.1) mg/dl Magnesium (1.7-2.4) mg/dl Total Bilirubin (0.2-1.0) mg/dl AST (13-39) U/L ALT (7-52) U/L Alkaline Phosphatase (34-104) U/L Total Protein (6.0-8.3) gm/dl Albumin (3.4-5.0) gm/dl Globulin (2.5-4.0) gm/dl Albumin/Globulin Ratio (0.9-2) Urine Color Yellow Urine Appearance Clear (Clear) Urine pH 5.5 (4.5-7.5) POC Urine pH (4.5-7.5) Ur Specific [place] 1.017 (1.000-1.030) Urine Protein Negative (Negative) POC Urine Protein (Negative) Urine Glucose (UA) Negative (Negative) POC Ur Glucose (UA) (Normal) Urine Ketones 1+ H (Negative) POC Urine Ketones (Negative) Urine Blood 3+ H (Negative) POC Urine Blood (Negative) Urine Nitrite Negative (Negative) POC Urine Nitrite (Negative) Urine Bilirubin Negative (Negative) POC Urine Bilirubin (Negative) Urine Urobilinogen Negative (Negative) POC Urine Urobilinogen (Normal) Ur Leukocyte Esterase Negative (Negative) POC U Leukocyte Esteras (Negative) Urine WBC (Auto) 1-5 (0-5) /hpf Urine RBC (Auto) >30 H (0-4) /hpf U Hyaline Cast (Auto) 1-5 (0-5) /lpf U Epithel Cells (Auto) 20-30 H (0-5) /lpf Urine Bacteria (Auto) Negative (Negative) POC Ur Test NEG (NEG) SARS-CoV-2, RNA, NAAT (NEGATIVE)
[2021-11-01] MEDS ORDERED: FEXOFENADINE HCL 180 MG TAB PO SCH (09:00)
[2021-11-01] MEDS ORDERED: KETOROLAC TROMETHAMINE 15 MG/ML VIAL IV ONE (09:07)
[2021-11-01] MEDS: KETOROLAC TROMETHAMINE 15 MG/ML VIAL ONE ×2 (09:07→09:28)
--- NOTE | 2021-11-01 09:23 | Urology Consultation ---
Date of Consultation November 01, 2021 Assessment & Plan (1) Right distal ureteral calculus: Plan 51-year-old female with a 4 mm right distal ureteral calculus. I discussed options with her which would be medical expulsive therapy versus right ureteral stent placement. The risks and benefits of both were discussed. She would like to attempt medical expulsive therapy and return home to [place] and establish care with her primary urologist. Recommend discharging patient home on alternating Tylenol and Toradol/ibuprofen, and breakthrough narcotic. She had a bad reaction to Flomax in the past and would prefer not to take this again. Okay to have a diet from a urologic perspective. Stable for discharge home from urologic perspective. Patient does not need any follow-up with [facility] urology as she will establish care with her primary urologist Discussed reasons to come back to the ER including but not limited to refractory pain and fevers. History of Present Illness Reason for Consultation: Right distal ureteral calculus Attending Physician: Anthony Castañeda DO History of Present Illness 51-year-old female with a 4 mm right distal ureteral calculus who presented emergency department. She is from [place] and is here for the weekend to move her daughter into [facility]. She does report a history of stones which had previously been treated with lithotripsy in the past. Her pain is reasonably well controlled at this time. She has been afebrile with stable vitals. Initially her white blood cell count was 17 but is down trended to 13. Creatinine is normal at 0.83. Urinalysis was negative for nitrites, negative for leukocyte esterase, had greater than 30 RBCs, 1-5 WBCs and no bacteria. I independently reviewed the CT scan which showed right hydroureteronephrosis and a 4 mm right distal ureteral calculus. Allergies Allergy/AdvReac Type Severity Reaction Status Date / Time Penicillins Allergy Unknown childhood Verified 10/31/21 16:37 allergy..unknown reaction Home Medications Medication Instructions Recorded Confirmed Type fexofenadine 180 mg tablet 180 mg PO DAILY 10/31/21 10/31/21 History ibuprofen 200 mg tablet (Advil) 400 - 800 mg PO Q6H PRN Pain 10/31/21 10/31/21 History Patient History Medical History Nephrolithiasis Family History Other Family history non-contributory Social History Smoking Status: Never smoker Hx Alcohol Use: No Hx Substance Use: No Preferred Language: Russian [facility] Required: No Beliefs That Will Affect Care: None Current Living Situation: Spouse and Family Other Information That Helps Us Care for You: No Feels Safe at Home: Yes Safety Concerns: Feels Safe At This Time Assistive Devices: None Review of Systems Review of Systems: 14 point review of systems negative outside of what is listed above in HPI Physical Exam Physical Exam: General: Alert and oriented, no acute distress HEENT: Normocephalic, mucous membranes moist Pulmonary: Nonlabored respirations Abdomen: Nondistended Extremities: Moves all 4 spontaneously Neuro: No gross deficits Skin: Warm, dry, no rashes noted Results & Data ([facility]) Vital Signs (Past 12 Hours) Vital Signs Pulse Resp BP Pulse Ox O2 Del Method 11/01/21 08:22 78 16 123/71 98 11/01/21 04:26 16 120/69 93 Room Air 11/01/21 03:29 18 104/67 95 Room Air 11/01/21 02:01 Room Air 11/01/21 00:34 16 103/61 93 Room Air 10/31/21 22:17 57 L 18 128/83 96 Room Air PG Care Time/CCT Total # of Minutes Spent Total Time Spent with Patient: Total time spent is greater than 50% in coordination of care (as documented) at patient's floor/unit and/or counseling patient: [place] [address] Inpt Consult Level 5 Patient Type New History Comprehensive Exam Comprehensive Medical Decision Making Moderate Complexity Diagnoses Right distal ureteral calculus N20.1
--- NOTE | 2021-11-01 09:35 | Discharge Summary ---
Date of Service November 01, 2021 Admission HPI Per Admitting Provider The patient is a 51-year-old female with a past medical history including 2 previous kidney stones, with the first when she was with her daughter over 17 years ago. At that time she had hematuria, which she does not have this time. She reports that her liquid intake may be decreased over the past few days with packing. He has had some nausea, no vomiting. She reports no sick exposures. Admission Exam Per Admitting Provider The patient is awake, alert and oriented 3, well developed and well nourished, normocephalic and atraumatic, lying in bed and in no acute distress after pain medications HEENT--PERRL, EOMI, mucous membranes and oropharynx normal. Neck--supple. No JVD. No bruits. Thyroid normal, trachea midline, no ad enopathy. Heart--normal S1 and S2. No murmurs, rubs or gallops. Lungs--clear bilaterally, no respiratory distress, no accessory muscle use. Abdomen--normal bowel sounds and soft. Mild right flank tenderness. Nondistended, no hernias or masses, no organomegaly. Extremities--no cyanosis or clubbing. No edema. Dermatologic--normal skin turgor, normal color, no abnormal lymph nodes, no rash. Neurologic--cranial nerves II through XII grossly intact. Rheumatologic--normal range of motion. Psychiatric--normal affect. Principal Diagnosis Right distal ureteral calculus Discharge Exam Constitutional: well-appearing, no acute distress HEENT: NCAT, no conjunctival injection CV: regular rhythm, no murmur appreciated, extremities well-perfused, no LE edema Resp: CTABL, no wheezes/rales/rhonchi appreciated, no increased work of breathing GI: soft, nondistended, nontender, BS normoactive. No CVA tenderness. Mild RLQ pain. MSK: no gross deformities appreciated Skin: warm, dry, no rash appreciated Neuro: alert, oriented, no focal neurologic deficit appreciated Discharge Data Allergies Allergy/AdvReac Type Severity Reaction Status Date / Time Penicillins Allergy Unknown childhood Verified 10/31/21 16:37 allergy..unknown reaction Consultations 10/31/21 20:55 ED Decision to Admit Stat 10/31/21 22:05 Consult Urology Routine Ordered Studies 10/31/21 16:25 CT abd pelvis IV con only Stat ABDOMEN AND PELVIS CT WITH IV CONTRAST CT DOSE: 264.16 mGy.cm HISTORY: right flank pain, n/v TECHNIQUE: Multiaxial CT images of the abdomen and pelvis were performed following the use of intravenous contrast. A dose lowering technique was utilized adhering to the principles of ALARA. COMPARISON STUDY: None. FINDINGS: The lung bases are clear. No pneumoperitoneum. No pneumatosis. Sclerosis within the left medial pubic bone which may be chronic. No fractures within the visualized osseous structures. The liver, gallbladder, pancreas, spleen, and adrenal glands are unremarkable. The main portal vein is patent. No retroperitoneal lymphadenopathy. Normal caliber abdominal aorta. No pelvic free fluid. The bladder is decompressed but appears unremarkable. The uterus and ovaries are within normal limits. A few small bilateral renal hypodense lesions. Dominant right upper pole hypodense lesion measures 11 mm. These favor cysts. No left-sided hydronephrosis. There is right perinephric edema/fluid and mild right hydroureteronephrosis secondary to an obstructing 4 mm stone within the distal right ureter on image 327. This is immediately proximal to the right ureterovesical junction. There is additional punctate nonobstructing stone within the lower pole of the right kidney. No bowel wall thickening or obstruction. Normal appendix. IMPRESSION: 1. A 4 mm obstructing stone within the distal right ureter resulting in mild right hydroureteronephrosis. 2. Right perinephric edema/fluid could be due to the obstruction or represent a forniceal rupture . 3. Right-sided nephrolithiasis. 4. Normal appendix. 11/01/21 11/01/21 10/31/21 Range/Units 04:51 04:51 21:20 WBC 13.21 H (4.8-10.8) K/ul RBC 4.14 (3.93-5.22) M/uL Hgb 11.4 L (12.0-16.0) g/dl Hct 35.0 (34.1-44.9) % MCV 84.5 (80.0-100.0) fL MCH 27.5 (25.0-34.0) pg MCHC 32.6 (32.0-36.0) g/dL RDW Std Deviation 41.5 (36.4-46.3) fL RDW Coeff of Yamilet 13.4 (11.5-14.5) % Plt Count 255 (130-400) K/uL MPV 10.1 (9.4-12.3) fL Immature Gran % (Auto) 0.5 % Neut % (Auto) 66.4 % Lymph % (Auto) 19.3 % Webster % (Auto) 12.8 % Eos % (Auto) 0.5 % Baso % (Auto) 0.5 % Neut # (Auto) 8.78 H (1.4-6.5) K/uL Lymph # (Auto) 2.55 (1.2-3.4) K/uL Webster # (Auto) 1.69 H (0.24-0.82) K/uL Eos # (Auto) 0.06 (0-0.50) K/uL Baso # (Auto) 0.06 (0-0.2) K/uL Immature Gran # (Auto) 0.07 H (0.00-0.02) K/uL Sodium 136 (136-145) mmol/L Potassium 3.4 L (3.5-5.1) mmol/L Chloride 107 (98-107) mmol/L Carbon Dioxide 23 (21-32) mmol/L Anion Gap 6 (3-11) BUN 9 (6-23) mg/dl Creatinine 0.83 (0.6-1.2) mg/dl Est Cr Clr Drug Dosing 73.8 ml/min Est GFR ( Amer) 96.0 ml/min Est GFR (Non-Af Amer) 82.8 ml/min BUN/Creatinine Ratio 10.8 (10-20) Glucose 101 H (70-99(Fasting)) mg/dl Calcium 7.8 L (8.5-10.1) mg/dl Magnesium 1.8 (1.7-2.4) mg/dl Total Bilirubin 1.0 (0.2-1.0) mg/dl AST 17 (13-39) U/L ALT 11 (7-52) U/L Alkaline Phosphatase 78 (34-104) U/L Total Protein 5.5 L D (6.0-8.3) gm/dl Albumin 3.3 L (3.4-5.0) gm/dl Globulin 2.2 L (2.5-4.0) gm/dl Albumin/Globulin Ratio 1.5 (0.9-2) Urine Color Urine Appearance (Clear) Urine pH (4.5-7.5) POC Urine pH (4.5-7.5) Ur Specific [place] (1.000-1.030) Urine Protein (Negative) POC Urine Protein (Negative) Urine Glucose (UA) (Negative) POC Ur Glucose (UA) (Normal) Urine Ketones (Negative) POC Urine Ketones (Negative) Urine Blood (Negative) POC Urine Blood (Negative) Urine Nitrite (Negative) POC Urine Nitrite (Negative) Urine Bilirubin (Negative) POC Urine Bilirubin (Negative) Urine Urobilinogen (Negative) POC Urine Urobilinogen (Normal) Ur Leukocyte Esterase (Negative) POC U Leukocyte Esteras (Negative) Urine WBC (Auto) (0-5) /hpf Urine RBC (Auto) (0-4) /hpf U Hyaline Cast (Auto) (0-5) /lpf U Epithel Cells (Auto) (0-5) /lpf Urine Bacteria (Auto) (Negative) POC Ur Test (NEG) SARS-CoV-2, RNA, NAAT NEGATIVE (NEGATIVE) 10/31/21 10/31/21 10/31/21 Range/Units 15:39 15:39 15:24 WBC 17.20 H (4.8-10.8) K/ul RBC 4.65 (3.93-5.22) M/uL Hgb 12.8 (12.0-16.0) g/dl Hct 39.4 (34.1-44.9) % MCV 84.7 (80.0-100.0) fL MCH 27.5 (25.0-34.0) pg MCHC 32.5 (32.0-36.0) g/dL RDW Std Deviation 41.4 (36.4-46.3) fL RDW Coeff of Yamilet 13.4 (11.5-14.5) % Plt Count 315 (130-400) K/uL MPV 10.2 (9.4-12.3) fL Immature Gran % (Auto) 0.5 % Neut % (Auto) 73.0 % Lymph % (Auto) 11.9 % Webster % (Auto) 9.3 % Eos % (Auto) 4.9 % Baso % (Auto) 0.4 % Neut # (Auto) 12.57 H (1.4-6.5) K/uL Lymph # (Auto) 2.04 (1.2-3.4) K/uL Webster # (Auto) 1.60 H (0.24-0.82) K/uL Eos # (Auto) 0.84 H (0-0.50) K/uL Baso # (Auto) 0.07 (0-0.2) K/uL Immature Gran # (Auto) 0.08 H (0.00-0.02) K/uL Sodium 133 L (136-145) mmol/L Potassium 3.1 L (3.5-5.1) mmol/L Chloride 98 (98-107) mmol/L Carbon Dioxide 25 (21-32) mmol/L Anion Gap 10 (3-11) BUN 11 (6-23) mg/dl Creatinine 0.89 (0.6-1.2) mg/dl Est Cr Clr Drug Dosing 68.8 ml/min Est GFR ( Amer) 88.2 ml/min Est GFR (Non-Af Amer) 76.1 ml/min BUN/Creatinine Ratio 12.4 (10-20) Glucose 98 (70-99(Fasting)) mg/dl Calcium 9.4 (8.5-10.1) mg/dl Magnesium (1.7-2.4) mg/dl Total Bilirubin 1.1 H (0.2-1.0) mg/dl AST 21 (13-39) U/L ALT 15 (7-52) U/L Alkaline Phosphatase 108 H (34-104) U/L Total Protein 7.8 (6.0-8.3) gm/dl Albumin 4.6 (3.4-5.0) gm/dl Globulin 3.2 (2.5-4.0) gm/dl Albumin/Globulin Ratio 1.4 (0.9-2) Urine Color Urine Appearance (Clear) Urine pH (4.5-7.5) POC Urine pH 7 (4.5-7.5) Ur Specific [place] (1.000-1.030) Urine Protein (Negative) POC Urine Protein Negative (Negative) Urine Glucose (UA) (Negative) POC Ur Glucose (UA) Normal (Normal) Urine Ketones (Negative) POC Urine Ketones 2+ (Moderate) H (Negative) Urine Blood (Negative) POC Urine Blood 250 H (Negative) Urine Nitrite (Negative) POC Urine Nitrite Negative (Negative) Urine Bilirubin (Negative) POC Urine Bilirubin Negative (Negative) Urine Urobilinogen (Negative) POC Urine Urobilinogen Normal (Normal) Ur Leukocyte Esterase (Negative) POC U Leukocyte Esteras Negative (Negative) Urine WBC (Auto) (0-5) /hpf Urine RBC (Auto) (0-4) /hpf U Hyaline Cast (Auto) (0-5) /lpf U Epithel Cells (Auto) (0-5) /lpf Urine Bacteria (Auto) (Negative) POC Ur Test (NEG) SARS-CoV-2, RNA, NAAT (NEGATIVE) 10/31/21 10/31/21 Range/Units 15:24 15:20 WBC (4.8-10.8) K/ul RBC (3.93-5.22) M/uL Hgb (12.0-16.0) g/dl Hct (34.1-44.9) % MCV (80.0-100.0) fL MCH (25.0-34.0) pg MCHC (32.0-36.0) g/dL RDW Std Deviation (36.4-46.3) fL RDW Coeff of Yamilet (11.5-14.5) % Plt Count (130-400) K/uL MPV (9.4-12.3) fL Immature Gran % (Auto) % Neut % (Auto) % Lymph % (Auto) % Webster % (Auto) % Eos % (Auto) % Baso % (Auto) % Neut # (Auto) (1.4-6.5) K/uL Lymph # (Auto) (1.2-3.4) K/uL Webster # (Auto) (0.24-0.82) K/uL Eos # (Auto) (0-0.50) K/uL Baso # (Auto) (0-0.2) K/uL Immature Gran # (Auto) (0.00-0.02) K/uL Sodium (136-145) mmol/L Potassium (3.5-5.1) mmol/L Chloride (98-107) mmol/L Carbon Dioxide (21-32) mmol/L Anion Gap (3-11) BUN (6-23) mg/dl Creatinine (0.6-1.2) mg/dl Est Cr Clr Drug Dosing ml/min Est GFR ( Amer) ml/min Est GFR (Non-Af Amer) ml/min BUN/Creatinine Ratio (10-20) Glucose (70-99(Fasting)) mg/dl Calcium (8.5-10.1) mg/dl Magnesium (1.7-2.4) mg/dl Total Bilirubin (0.2-1.0) mg/dl AST (13-39) U/L ALT (7-52) U/L Alkaline Phosphatase (34-104) U/L Total Protein (6.0-8.3) gm/dl Albumin (3.4-5.0) gm/dl Globulin (2.5-4.0) gm/dl Albumin/Globulin Ratio (0.9-2) Urine Color Yellow Urine Appearance Clear (Clear) Urine pH 5.5 (4.5-7.5) POC Urine pH (4.5-7.5) Ur Specific [place] 1.017 (1.000-1.030) Urine Protein Negative (Negative) POC Urine Protein (Negative) Urine Glucose (UA) Negative (Negative) POC Ur Glucose (UA) (Normal) Urine Ketones 1+ H (Negative) POC Urine Ketones (Negative) Urine Blood 3+ H (Negative) POC Urine Blood (Negative) Urine Nitrite Negative (Negative) POC Urine Nitrite (Negative) Urine Bilirubin Negative (Negative) POC Urine Bilirubin (Negative) Urine Urobilinogen Negative (Negative) POC Urine Urobilinogen (Normal) Ur Leukocyte Esterase Negative (Negative) POC U Leukocyte Esteras (Negative) Urine WBC (Auto) 1-5 (0-5) /hpf Urine RBC (Auto) >30 H (0-4) /hpf U Hyaline Cast (Auto) 1-5 (0-5) /lpf U Epithel Cells (Auto) 20-30 H (0-5) /lpf Urine Bacteria (Auto) Negative (Negative) POC Ur Test NEG (NEG) SARS-CoV-2, RNA, NAAT (NEGATIVE) Hospital Course (1) Right distal ureteral calculus: 4 mm distal right ureteral calculus/mild right hydronephrosis/questionable forniceal rupture. She was seen by urology and discussed options of medical expulsive therapy versus right ureteral stent placement.She would like to attempt medical expulsive therapy and will plan to follow up with her urologist at home. She had a bad reaction to Flomax in the past, so would prefer not to take at this time. Tylenol 500mg q6 prn(up to 200mg per day) and ibuprofen 600-800mg q6 prn for mild to moderate pain , and 5 mg oxycodone q6 prn for severe pain. Zofran q6 prn for nausea. Continue with adequate hydration. (2) Hydronephrosis of right kidney: As per above (3) Neutrophilic leukocytosis: UA significant for +1 ketones and +3 blood (pt is on her period). Leukocytosis= 11.4 with a neuratrophic predominance. Urine culture is still pending. Received 1 dose ciprofloxacin here. Could be secondary to inflammation, but with nephrolithiasis will plan to treat with cefdinir 300mg BID for a presumed 7 day course. (4) Hypokalemia: Resolved. Potassium 3.1 on admission and was repleted. (5) Hyponatremia: Resolved. Sodium 133 on admission up to 137 with IV fluids Total Time Total Time Spent Total Time Spent (In Minutes): >30 Discharge Plan Discharge Items Patient Disposition: Home - Self-Care Reason For Visit: DISTAL RT URETERAL STONE, MILD RT HYDRONEPHROSIS Discharge Diagnosis: Right Distal Uretal Calculus Activity: Resume your previous activity Non-emergency contact: Primary Care Provider Call non-emergency contact if: you have any medication questions, your pain is not controlled, your pain is worsening and you have a fever Follow-up/Referrals: PCP,NO [Primary Care Provider] - Diet: Regular Addtl Attending Provider Instructions: kidney stone -as we discussed, a 4mm kidney stone has a really good chance of passing on its own (upwards of 90%) - but that doesn't mean that it won't inflict a lot of misery. -it's really reasonable to give time to try to pass it on your own -- as a "line in the sand" - when you call your urologist for follow up Wednesday, if things are a lot better then you probably won't need a scope/stent/etc, but if things are still rough, then it would make sense to set things in motion to proceed with procedures to take care of the stone -while the elevated white cell count on your bloodwork really may just be due to the physiologic stress from the stone, it's hard to rule out an infection - to that end we're going to have you go home on antibiotics (cefdinir, 300mg twice a day, for a presumed course of 7 days -- depending on how you're doing, your docs back home could cut the course short (if things are going great) or extend it (if it becomes clear that there truly is infection AND it's slow to improve) -the small "forniceal rupture" (essentially think of it as a small "blowout" from back pressure on your kidney from the stone) is most of the time something that sounds more concerning on CT reports than it is in real life. a lot of these really just get better on their own. your urologist will follow up on things - but as we discussed, "follow up" could be as simple as following symptoms and physical exam (if the pain totally resolves, and you look and feel fine) or as intensive as repeated imaging/etc (if you're having persisting flank pain/stubborn infection/etc). pain control: use tylenol (up to 2000mg a day - an OTC extra strength is 500mg per dose so you could take that up to every 6 hours) and ibuprofen (600-800mg up to every 6 hours as well) for most of the pain. if you've got pain that's too bad for the tylenol and ibuprofen, then we'll have sent in an Rx for oxycodone that you can take 5mg up to every 6 hours for breakthrough pain. the oxycodone can make you groggy (so don't drive if you take it) can can cause constipation (so if you're needing it with any degree of regularity i would have you start something like miralax 1 capful 1-2x per day proactively). the tylenol, ibuprofen, and oxycodone can really all be on their own separate "every 6 hour" schedules - so you can really take them independent of eachother. ie - if you took tylenol an hour ago but things are still bad, you wouldn't want to take another dose of tylenol for 5 hours, but you could take ibuprofen or oxycodone with disregard to when you took the tylenol. hydration: make sure you're drinking at least 60oz of fluids a day - probably ideally more like 80oz. keep track: it's really easy to mis-estimate what we drink, so either write it down or track it in an donovan nausea: because kidney stones do normally have nausea as part of the typical symptoms, we've sent in zofran (ondansetron) that you can take up to every 6 hours as needed for nausea. it's pretty clean as far as side effects - rarely it will make people feel a little goofy or groggy, but most people tolerate it with essentially no troubles antibiotics; as above noted, we'll have you on cefdinir 300mg twice a day for a presumed 7 days. red flags: -a fever should be a "do not pass Go" kind of event -- if you had a fever with the stone, that could then be concerning for a more serious infection that might even require hospital admission to take care of. it's really low odds that will happen, but it would be something that you wouldn't want to sit on/watch -nausea - since you'll want to be drinking a minimum of 60oz of fluids a day, if you have nausea that's bad enough/persistent enough to prevent you from drinking, that would warrant hospital evaluation (for IV fluids). while nausea is a "red flag" for going back to the hospital, it's also one that you can use some discretion -- if it isn't too bad to preclude drinking, or it's bad but passes in a few hours - you can continue to watch how you're doing from home. if it's bad/intense/persistent, then we'd want you seen -pain - much like nausea, pain that doesn't get better with the pain medicines should get your attention - and might mean that you'll need to go back to the hospital (IV pain meds, possibly more immediate intervention on the stone) - but like the nausea, is also a "red flag" that you can give a little time to see how it goes-- if things settle out over a few hours and then it's tolerable again, you can continue to watch how you're doing from home; if it keeps getting worse or persists, then you should definitely be seen for follow up - they should have given you a CD with your CT images for your urologist, and if you get on the [employer] [facility] [place] portal (sign up through [email or web address]) it really gives you the same information (image reports, lab results, notes) as what we have in your clinical chart Pending Studies at Discharge: No Stand-Alone Forms: [facility] Medications and DC Order Prescriptions: New cefdinir 300 mg capsule 300 mg PO BID Qty: 14 0RF oxycodone 5 mg tablet 5 mg PO Q6H PRN (Reason: pain (scale score 7-10)) Qty: 10 0RF ondansetron 4 mg tablet,disintegrating 4 mg PO Q6H PRN (Reason: nausea and vomiting) Qty: 30 0RF Continued fexofenadine 180 mg Tablet 180 mg PO DAILY ibuprofen [Advil] 200 mg Tablet 400 - 800 mg PO Q6H PRN (Reason: Pain) Discharge Orders: Discharge Order (Routine); Ordered 11/01/21 Ordered By: Jeanne Hope Admission Data Admit Date/Time: 10/31/21 22:01 Attending Provider: Anthony Castañeda Admit Provider: Dave Montalvo Primary Care Provider: PCP,NO Other Providers: Dave Montalvo ; Glenn Pena Other Interventions: Discharge Summary Assessment (RN) Last Done: 11/01/21 11:05 Supervising Physician Co-Signing Physician Notes I personally examined the patient and verified all [place] points of history and exam, discussed case, and agree with decision making with Dr Hope. Feeling good enough to go home. Discussed current treatment. Discussed outpatient follow-up. Extensive discharge instructions personally prepared for patient. Vitals noted, in general she is awake and alert pleasant no distress. HEENT normocephalic atraumatic mucous membranes moist. Breathing unlabored no accessory muscle use good effort. Skin shows no rashes no pallor or icterus. Neuro without focal deficits. Renal colic/ureterolithiasisonly 4 mm so should hopefully pass spontaneously, but was quite symptomaticnow improved. Forniceal rupturesupportive care. Given her leukocytosisobligated to cover with antibiotics. Discussed red flags, discussed follow-up, asked for CD to be part of CT for continuity of care, discussed being able to get on the portal so that she can have access to all of her results. Safe/stable for home otherwise Resident Activity Tracking Resident Involvement: Resident Care Provided Care Provided: Adult Hospital Medicine
--- NOTE | 2021-11-01 19:57 | Billing Data ---
Date of Service November 01, 2021 Coding Level of Care Code D/C DAY MANAGEMENT >30 MINS
[2021-11-01] MEDS ORDERED: TAMSULOSIN HCL 0.4 MG CAP PO SCH (21:00)
== END 2021-11-01 11:15 | disposition home or self-care (01) ==
LOC: ED 14:34 → EDINP 22:01 → INTOOBSV 22:01 → SUATTDRO 22:01 → EDINP 11-01 02:48